=== PATIENT | female | born 1990 | race Caucasian/White ===

== ENCOUNTER 2016-06-29 07:52 | Day surgery (SDC) | payer BC ==
[~2016-06-29] VITALS: Ht 154.9 cm; Wt 54.4 kg
[~2016-06-29 07:52] MED LIST: BUSPAR5 MG PO; CELEXA20 MG PO; LO LOESTRIN FE1 EACH PO; PRENATAL TABLE1 EAC3 PO
[2016-06-29 08:29] VITALS: BP 116/72
[2016-06-29] MEDS ORDERED: MOTRIN800 MG PO (09:06)
[2016-06-29] MEDS ORDERED: VICODIN 5-3001 EACH PO (09:06)
[2016-06-29 10:50] VITALS: BP 109/67
[2016-06-29 11:59] VITALS: BP 97/56
== END 2016-06-29 12:00 | disposition home or self-care (01) ==
LOC: SDC 07:52
PROC: 10D17ZZ Extraction of Products of Conception, Retained, Via Natural or Artificial Opening (ICD-10-PCS; principal; 2016-06-29)
DX: O02.1 Missed abortion (principal); R01.1 Cardiac murmur, unspecified
CPT/HCPCS: 88305; J0131; J1100; J1885; J2250; J2405; J2765; J3010

== ENCOUNTER 2017-02-21 13:09 | Emergency (ER) | payer BC ==
[~2017-02-21] VITALS: Ht 154.9 cm; Wt 57.3 kg
[~2017-02-21 13:09] MED LIST changes: +MOTRIN800 MG PO; +VICODIN 5-3001 EACH PO
[2017-02-21 14:18] LABS: BASOPHIL COUNT 0.1 K/uL (0-0.1); EOSINOPHIL (%) 1.6 % (0-5); EOSINOPHIL COUNT 0.2 K/uL (0-0.3); HEMATOCRIT 30.5 % (36.0-46.0); IMMATURE GRANULOCYTE (%) 0.4 % (0.0-0.7); INSTRUMENT ABS NEUTROPHIL CT 7.1 K/uL; LYMPHOCYTE COUNT 2.2 K/uL (1.0-2.8); MCH 28.4 PG (29.0-34.0); MCHC 33.8 G/DL (30.0-36.0); MEAN PLAT.VOLUME 9.5 uM^3 (9.5-12.4); MONOCYTE (%) 7.1 % (3-12); MONOCYTE COUNT 0.7 K/uL (0-0.8); NEUTROPHIL (%) 69.1 % (45-76); NEUTROPHIL COUNT 7.1 K/uL (1.8-6.4); PLATELET COUNT 287 K/uL (156-360); RBC DIS.WIDTH-CV 12.4 % (11.8-14.6); RBC DIS.WIDTH-SD 37.7 % (39-53); RED BLOOD COUNT 3.63 M/uL (3.80-5.20); WHITE BLOOD COUNT 10.3 K/uL (4.1-10.2)
[2017-02-21 14:28] LABS: CHLORIDE 106 mEq/L (99-109); POTASSIUM 3.4 mEq/L (3.7-5.4); SODIUM 136 mEq/L (136-147)
[2017-02-21 14:29] LABS: GLUCOSE 128 mg/dL (70-99)
[2017-02-21 14:31] LABS: ANION GAP 9 MEQ/L (2-14)
[2017-02-21 14:33] LABS: GFR ESTIMATE (CALCULATED) > 59 mL/min/
[2017-02-21 14:34] LABS: UREA NITROGEN (BUN) 8 mg/dL (9-23)
[2017-02-21 14:57] LABS: TROP-I INTERPRETATION NEGATIVE; TROPONIN-I < 0.01 ng/mL (0.0-0.30)
[2017-02-21 15:26] LABS: QUANTITATIVE HCG 31081.1 MIU/ML
[2017-02-21 15:27] LABS: D-DIMER ELISA < 150.00 ng/mLDDU (<230)
[2017-02-21 17:42] VITALS: BP 102/65
== END 2017-02-21 17:43 | disposition home or self-care (01) ==
LOC: EME 13:09
PROVIDERS: Emergency Medicine; Nurse Practitioner Family
DX: O99.282 Endocrine, nutritional and metabolic diseases complicating pregnancy, second trimester (principal); E86.0 Dehydration; O99.89 Other specified diseases and conditions complicating pregnancy, childbirth and the puerperium; R00.0 Tachycardia, unspecified; O99.612 Diseases of the digestive system complicating pregnancy, second trimester; K21.9 Gastro-esophageal reflux disease without esophagitis; O99.342 Other mental disorders complicating pregnancy, second trimester; F41.9 Anxiety disorder, unspecified; Z3A.18 18 weeks gestation of pregnancy
CPT/HCPCS: 76805; 80048; 84484; 84702; 85025; 85379; 93005; 99281; 99283; J7030

== ENCOUNTER 2017-07-14 11:50 | Inpatient (IN) | payer BC ==
[~2017-07-14] VITALS: Ht 154.9 cm; Wt 59.9 kg
[2017-07-14] VITALS (15 sets, daily range): BP systolic 101–138; BP diastolic 56–87
[2017-07-14 17:02] LABS: BASOPHIL (%) 0.2 % (0-1); EOSINOPHIL (%) 0.1 % (0-5); HEMATOCRIT 35.6 % (36.0-46.0); HEMOGLOBIN 12.5 G/DL (11.9-15.5); IMMATURE GRANULOCYTE (%) 0.4 % (0.0-0.7); LYMPHOCYTE (%) 9.9 % (15-42); LYMPHOCYTE COUNT 1.8 K/uL (1.0-2.8); MCH 29.6 PG (29.0-34.0); MCHC 35.1 G/DL (30.0-36.0); MCV 84.2 FL (83-99); MONOCYTE (%) 6.2 % (3-12); MONOCYTE COUNT 1.1 K/uL (0-0.8); NEUTROPHIL (%) 83.2 % (45-76); NEUTROPHIL COUNT 14.8 K/uL (1.8-6.4); PLATELET COUNT 223 K/uL (156-360); RBC DIS.WIDTH-SD 39.6 % (39-53); RED BLOOD COUNT 4.23 M/uL (3.80-5.20); WHITE BLOOD COUNT 17.8 K/uL (4.1-10.2)
[2017-07-15] VITALS (10 sets, daily range): BP systolic 113–138; BP diastolic 61–80
[2017-07-15] MEDS ORDERED: IBUPROFEN800 MG PO (00:48)
[2017-07-15] MEDS ORDERED: IRON325 M1 PO (18:10)
[2017-07-16 08:00] VITALS: BP 102/63
[2017-07-16 15:10] VITALS: BP 126/77
[2017-07-17 07:53] VITALS: BP 123/77
== END 2017-07-17 11:22 | disposition home or self-care (01) | DRG 775 ==
LOC: LDRP-OP 11:50 → 2WEST 11:51
PROVIDERS: Midwife
DX: O70.0 First degree perineal laceration during delivery (principal); O99.02 Anemia complicating childbirth; D50.9 Iron deficiency anemia, unspecified; O99.344 Other mental disorders complicating childbirth; F41.9 Anxiety disorder, unspecified; F32.9 Major depressive disorder, single episode, unspecified; O99.62 Diseases of the digestive system complicating childbirth; K21.9 Gastro-esophageal reflux disease without esophagitis; Z3A.39 39 weeks gestation of pregnancy; Z37.0 Single live birth
CPT/HCPCS: 85025; C1755; G0378; J3010; J7120